=== PATIENT | male | born 1980 | race Two or more races ===

== ENCOUNTER 2017-02-21 12:03 | Outpatient (CLI) | payer MEDICARE ==
--- NOTE | 2017-02-22 18:53 | XRAY Report ---
LEFT FOREARM, TWO VIEWS: 02/21/2017 CLINICAL HISTORY: Pain. FINDINGS: Left forearm appears normal as does the left wrist and left elbow. IMPRESSION: NORMAL EXAMINATION. JOB #: [id number] EXT [id number] #:[id number]
== END 2017-02-21 12:04 | disposition home or self-care (01) ==
LOC: DI.N 12:03
PROVIDERS: ATTEND Physician Assistant
DX: M25.532 Pain in left wrist (principal)

== ENCOUNTER 2017-03-02 14:36 | Emergency (ER) | payer MEDICARE ==
[2017-03-02 15:08] LABS: BILIRUBIN,URINE NEGATIVE (NEGATIVE); PH,URINE 6.5 PH (5.0-7.5)
[2017-03-02 15:09] LABS: UA w/ MICROSCOPIC CHARGE YES
[2017-03-02 15:27] LABS: WBC,URINE 0-3 /HPF (0-3)
[2017-03-02 15:28] LABS: UR CULTURE IF IND NOT INDICATED
[2017-03-02] MEDS ORDERED: KETOROLAC 60 MG/2 ML VIAL IVP STA (16:19)
[2017-03-02] MEDS ORDERED: ONDANSETRON 4 MG/2 ML VIAL IVP STA (16:19)
[2017-03-02] MEDS ORDERED: ONDANSETRON 4 MG/2 ML VIAL ONE (16:24)
[2017-03-02] MEDS ORDERED: KETOROLAC 30 MG/ML VIAL ONE (16:24)
[2017-03-02 16:31] LABS: BASOPHILS % (AUTO) 0.4 %; EOSINOPHILS # (AUTO) 0.2 10^3/uL (0.0-0.7); HCT - HEMATOCRIT 43.9 % (42.0-52.0); HGB - HEMOGLOBIN 14.7 g/dL (14.0-18.0); LYMPHOCYTES # (AUTO) 1.9 10^3/uL (1.5-3.5); LYMPHOCYTES % (AUTO) 27.2 %; MEAN CORPUSCULAR HEMOGLOBIN 28.3 pg (27.0-31.0); MEAN CORPUSCULAR HGB CONC 33.5 g/dL (32.0-36.0); MEAN CORPUSCULAR VOLUME 84.5 fL (80.0-94.0); MEAN PLATELET VOLUME 6.8 fL (7.4-11.4); MONOCYTES # (AUTO) 0.6 10^3/uL (0.0-1.0); MONOCYTES % (AUTO) 9.1 %; NEUTROPHILS # (AUTO) 4.2 10^3/uL (1.5-6.6); NEUTROPHILS % (AUTO) 60.3 %; NUCLEATED RED BLOOD CELLS AUTO 0.1 /100WBC; RED CELL DISTRIBUTION WIDTH 13.5 % (12.0-15.0)
[2017-03-02 16:45] LABS: ALBUMIN/GLOBULIN RATIO 1.4 (1.0-2.2); BILIRUBIN,TOTAL 0.7 mg/dL (0.2-1.0); CALCIUM 9.2 mg/dL (8.5-10.3); POTASSIUM 3.6 mmol/L (3.5-5.0); TOTAL PROTEIN 7.8 g/dL (6.7-8.2)
--- NOTE | 2017-03-02 16:49 | ED Physician Documentation ---
PD HPI ABD PAIN - Stated complaint Stated Complaint: ABD PAIN - Chief complaint Chief Complaint: Abd Pain - History obtained from History obtained from: Patient - History of Present Illness Timing - onset: Today Timing - duration: Hours (8) Timing - details: Abrupt onset Pain level max: 9 Pain level now: 9 Quality: Aching, Pain Location: LLQ Radiation: Other (L testicle) Improved by: Other (shower) Worsened by: Other (palpation) Associated symptoms: No: Fever, Nausea, Vomiting, Hematemesis, Diarrhea, Constipation, Melena, Hematochezia Similar symptoms before: Diagnosis (ureteral stones) Recently seen: Not recently seen Review of Systems Constitutional: denies: Fever, Chills Nose: denies: Rhinorrhea / runny nose, Congestion Throat: denies: Sore throat Cardiac: denies: Chest pain / pressure Respiratory: denies: Cough : denies: Hematuria Skin: denies: Rash Neurologic: denies: Headache PD PAST MEDICAL HISTORY - Past Medical History Past Medical History: Yes : Kidney stones Psych: Bipolar disorder - Past Surgical History Past Surgical History: No - Present Medications Home Medications: Ambulatory Orders Medication Instructions Recorded Confirmed Hydrocodone/Acetaminophen 1 - 2 each PO Q6H PRN #14 tablet 03/02/17 [Hydrocodon-Acetaminophen 5-325] Ibuprofen [Motrin] 800 mg PO Q8H PRN #30 tablet 03/02/17 Ondansetron Odt [Zofran] 4 mg TL Q6H PRN #10 tablet 03/02/17 - Allergies Allergies/Adverse Reactions: Allergies Allergy/AdvReac Type Severity Reaction Status Date / Time No Known Drug Allergies Allergy Verified 03/02/17 14:43 - Social History Does the pt smoke?: Yes Smoking Status: Current every day smoker PD ED PE NORMAL - Vitals Vital signs reviewed: Yes - General General: Alert and oriented X 3, No acute distress, Well developed/nourished - HEENT HEENT: PERRL, Moist mucous membranes - Neck Neck: Supple, no meningeal sign - Cardiac Cardiac: RRR, Strong equal pulses - Respiratory Respiratory: No respiratory distress, Clear bilaterally - Abdomen Abdomen: Soft, Non tender, Non distended - Male Male : Other (Normal genital exam. No scrotal swelling, edema. No testicular tenderness. No epididymal tenderness.) - Back Back: No CVA TTP, No spinal TTP - Derm Derm: Warm and dry - Neuro Neuro: Alert and oriented X 3 - Psych Psych: Normal mood, Normal affect Results - Vitals Vitals: Vital Signs - 24 hr 03/02/17 03/02/17 14:41 17:28 Temperature 36.3 C L 36.6 C Heart Rate 81 75 Respiratory 18 18 Rate Blood Pressure 141/88 H 133/72 H O2 Saturation 100 98 Oxygen O2 Source Room air - Labs Labs: Laboratory Tests 03/02/17 03/02/17 03/02/17 14:51 16:05 16:05 WBC 7.0 RBC 5.20 Hgb 14.7 Hct 43.9 MCV 84.5 MCH 28.3 MCHC 33.5 RDW 13.5 Plt Count 336 MPV 6.8 L Neut # 4.2 Lymph # 1.9 [place] # 0.6 Eos # 0.2 Baso # 0.0 Absolute Nucleated RBC 0.01 Nucleated RBCs 0.1 Sodium 139 Potassium 3.6 Chloride 107 Carbon Dioxide 24 Anion Gap 8.0 BUN 23 H Creatinine 1.0 Estimated GFR (MDRD) 84 L Glucose 94 Calcium 9.2 Total Bilirubin 0.7 AST 20 ALT 28 Alkaline Phosphatase 55 Total Protein 7.8 Albumin 4.5 Globulin 3.3 Albumin/Globulin Ratio 1.4 Lipase 22 Urine Color YELLOW Urine Clarity CLEAR Urine pH 6.5 Ur Specific [place] 1.025 Urine Protein NEGATIVE Urine Glucose (UA) NEGATIVE Urine Ketones NEGATIVE Urine Occult Blood LARGE H Urine Nitrite NEGATIVE Urine Bilirubin NEGATIVE Urine Urobilinogen 0.2 (NORMAL) Ur Leukocyte Esterase NEGATIVE Urine RBC 11-25 H Urine WBC 0-3 Ur Squamous Epith Cells NONE SEEN Urine Bacteria None Seen Ur Microscopic Review INDICATED Urine Culture Comments NOT INDICATED PD MEDICAL DECISION MAKING - ED course Complexity details: considered differential, d/w patient ED course: Patient is a 36-year-old male who presents to the emergency department with what sounds like a ureteral stone by history. Left flank pain radiating to the left testicle. Hematuria present. No STD risk factors. Normal genital exam. As he has had kidney stones in the past, will hold CT at this time, treat symptomatically and see how he progresses. No evidence of UTI. Patient counseled regarding signs and symptoms for which I believe and urgent re- evaluation would be necessary. Patient with good understanding of and agreement to plan and is comfortable going home at this time This document was made in part using voice recognition software. While efforts are made to proofread this document, sound alike and grammatical errors may occur. Departure - Departure Disposition: 01 Home, Self Care Clinical Impression: Ureteral stone Condition: Good Instructions: ED Stone Renal W Colic Follow-Up: your,doctor in 1 week [Other] Prescriptions: Hydrocodone/Acetaminophen [Hydrocodon-Acetaminophen 5-325] 1 - 2 each PO Q6H PRN #14 tablet PRN Reason: pain Ibuprofen [Motrin] 800 mg PO Q8H PRN #30 tablet PRN Reason: PAIN &/OR FEVER Ondansetron Odt [Zofran] 4 mg TL Q6H PRN #10 tablet PRN Reason: Nausea / Vomiting Comments: Return if you worsen. This should improve over the next few days. Drink plenty of fluids. Do not drink alcohol or drive while on narcotic pain medicine. Note that many narcotic pain relievers also contain tylenol/acetaminophen. Please ensure that your total dose of acetaminophen from all sources does not exceed 3 grams (3000mg) per day. You may constipated on this medication, take a stool softener such as "Colace" twice a day while you are on it. Also recommend a uufl-teo-wbyoczt laxative such as senna or MiraLAX any day that you do not have a bowel movement. If you received narcotic pain medication in the emergency department, do not drive or operate machinery for the next 24 hours. Your blood pressure was elevated today on check in to the emergency department. This does not mean that you have hypertension, it is a common phenomenon to check into the emergency department and have elevated blood pressure. I recommend that you see your primary care physician within the week to have it rechecked when you're feeling better. Discharge Date/Time: 03/02/17 17:28
[2017-03-02] MEDS ORDERED: oxyCOD/ACETAMIN 5 MG/325 MG TABLET PO STA (16:58)
[2017-03-02] MEDS ORDERED: oxyCOD/ACETAMIN 5 MG/325 MG TABLET PO ONE (17:07)
[2017-03-02 17:29] VITALS: BP 133/72
== END 2017-03-02 17:28 | disposition home or self-care (01) ==
LOC: ED 14:36
DX: N20.1 Calculus of ureter (principal); Z87.442 Personal history of urinary calculi; R03.0 Elevated blood-pressure reading, without diagnosis of hypertension; F17.200 Nicotine dependence, unspecified, uncomplicated
CPT/HCPCS: 36415; 80053; 81001; 83690; 85025; 96374; 96375; 99283; 99284; A9270; 81003; 87086

== ENCOUNTER 2017-03-14 00:29 | Emergency (ER) | payer MEDICARE ==
[2017-03-14] MEDS: KETOROLAC 60 MG/2 ML VIAL IM STA (00:45)
[2017-03-14] MEDS ORDERED: KETOROLAC 60 MG/2 ML VIAL ONE (00:46)
[2017-03-14 00:50] LABS: BILIRUBIN,URINE NEGATIVE (NEGATIVE); PH,URINE 5.5 PH (5.0-7.5)
[2017-03-14 00:51] LABS: UA CHARGE (STRIP ONLY) YES; UR CULTURE IF IND NOT INDICATED
--- NOTE | 2017-03-14 01:34 | CT Preliminary Report ---
Exam: CT Abdomen/Pelvis W/O IMPRESSION: 1. There is a 6 x 4 mm left vesicoureteral junction stone resulting in mild to moderate hydronephrosi s. 2. Small hiatal hernia. [facility] SITE ID: [id number]
--- NOTE | 2017-03-14 01:36 | CT Report ---
EXAM: CT ABDOMEN AND PELVIS (CT KUB) EXAM DATE: 03/14/2017 01:18 AM. CLINICAL HISTORY: Left lower abd pain, . COMPARISONS: None. TECHNIQUE: Routine axial helical CT imaging was performed through the abdomen and pelvis without IV c ontrast. Reconstructions: Coronal and sagittal. In accordance with CT protocol optimization, one or more of the following dose reduction techniques w ere utilized for this exam: automated exposure control, adjustment of mA and/or KV based on patient s ize, or use of iterative reconstructive technique. FINDINGS: Lung Bases: Small hiatal hernia. Right Kidney/Ureter: No stones, hydronephrosis, or hydroureter. No perinephric fat stranding. Left Kidney/Ureter: Mild to moderate hydronephrosis and perinephric stranding. There is mild dilatati on of the ureter. Findings secondary to a 6 x 4 mm stone at the vesicoureteral junction. Other Solid Organs: Noncontrast images of the solid organs are grossly unremarkable. Gallbladder/Bile Ducts: The gallbladder is contracted. There is no bile duct dilatation. Peritoneal Cavity: No free fluid, free air or abdias adenopathy. Bowel is grossly unremarkable. Pelvic Organs: No bladder stones or wall thickening. Noncontrast images of the visualized pelvic orga ns are unremarkable. Vasculature: Unremarkable. Other: None. IMPRESSION: 1. There is a 6 x 4 mm left vesicoureteral junction stone resulting in mild to moderate hydronephrosi s. 2. Small hiatal hernia. [facility] Referring Provider Line: [phone] SITE ID: [id number]
--- NOTE | 2017-03-14 01:57 | ED Physician Documentation ---
PD HPI ABD PAIN - Stated complaint Stated Complaint: LT SIDE,LT GROIN PAIN - Chief complaint Chief Complaint: Abd Pain - History obtained from History obtained from: Patient, Family - History of Present Illness Timing - onset: Today Timing - details: Gradual onset, Still present, Waxing and waning Quality: Stabbing, Throbbing Location: LLQ Radiation: Left flank Associated symptoms: Nausea. No: Fever, Vomiting, Hematemesis, Diarrhea, Constipation Similar symptoms before: Work up / diagnostics, Treatment Recently seen: Emergency Dept - Additional information Additional information: Patient is a 36 year old male who was recently diagnosed with kidney stones who is presenting to the emergency department for left lower quadrant and left flank pain. Patient states that he had been ok for the last couple of days but then his pain came back. Review of Systems Constitutional: denies: Fever, Chills Eyes: denies: Loss of vision, Decreased vision Ears: denies: Ear pain, Drainage/discharge Nose: denies: Rhinorrhea / runny nose, Congestion Throat: denies: Oral lesions / sores, Sore throat Cardiac: denies: Chest pain / pressure GI: reports: Abdominal Pain, Nausea. denies: Vomiting, Constipation, Diarrhea : reports: Hesitancy. denies: Dysuria, Frequency Skin: denies: Rash, Lesions Musculoskeletal: reports: Back pain Neurologic: denies: Generalized weakness, Focal weakness, Numbness Immunocompromised: denies: Immunocompromised PD PAST MEDICAL HISTORY - Past Medical History Past Medical History: Yes : Kidney stones Psych: Bipolar disorder - Past Surgical History Past Surgical History: No - Present Medications Home Medications: Ambulatory Orders Medication Instructions Recorded Confirmed Hydrocodone/Acetaminophen 1 - 2 each PO Q6H PRN #14 tablet 03/02/17 [Hydrocodon-Acetaminophen 5-325] Ibuprofen [Motrin] 800 mg PO Q8H PRN #30 tablet 03/02/17 Ondansetron Odt [Zofran] 4 mg TL Q6H PRN #10 tablet 03/02/17 Ondansetron Odt [Zofran] 4 mg TL Q6H PRN #14 tablet 03/14/17 Oxycodone HCl/Acetaminophen 1 - 2 each PO Q6H PRN #10 tablet 03/14/17 [Percocet 5-325 mg Tablet] Tamsulosin HCl [Flomax] 0.4 mg PO DAILY #10 cap.er.24h 03/14/17 - Allergies Allergies/Adverse Reactions: Allergies Allergy/AdvReac Type Severity Reaction Status Date / Time No Known Drug Allergies Allergy Verified 03/14/17 00:40 - Social History Does the pt smoke?: Yes Smoking Status: Current every day smoker - POLST Patient has POLST: No PD ED PE NORMAL - Vitals Vital signs reviewed: Yes - General General: Alert and oriented X 3, Well developed/nourished - HEENT HEENT: Atraumatic, PERRL - Neck Neck: Supple, no meningeal sign - Cardiac Cardiac: RRR, No murmur - Respiratory Respiratory: No respiratory distress - Derm Derm: Normal color, Warm and dry, No rash - Extremities Extremities: No deformity, No tenderness to palpate - Neuro Neuro: Alert and oriented X 3, No motor deficit, No sensory deficit - Psych Psych: Normal mood PD ED PE EXPANDED - General General: Alert, In Pain - HEENT HEENT: Dry mucous membranes - Abdomen Abdomen: Tender to palpation, LLQ. No: Rebound, Guarding Results - Vitals Vitals: Vital Signs - 24 hr 03/14/17 03/14/17 00:35 02:05 Temperature 36.6 C Heart Rate 76 80 Respiratory 18 17 Rate Blood Pressure 161/96 H 146/96 H O2 Saturation 100 99 Oxygen O2 Source Room air - Labs Labs: Laboratory Tests 03/14/17 00:46 Urine Color YELLOW Urine Clarity CLEAR Urine pH 5.5 Ur Specific [place] >=1.030 H Urine Protein TRACE Urine Glucose (UA) NEGATIVE Urine Ketones NEGATIVE Urine Occult Blood NEGATIVE Urine Nitrite NEGATIVE Urine Bilirubin NEGATIVE Urine Urobilinogen 0.2 (NORMAL) Ur Leukocyte Esterase NEGATIVE Ur Microscopic Review NOT INDICATED Urine Culture Comments NOT INDICATED - Rads (name of study) ct abdomen/pelvis Radiology: Final report received (4mm by 6mm stone, mild hydro) PD MEDICAL DECISION MAKING - ED course Complexity details: reviewed old records, reviewed results, re-evaluated patient , considered differential, d/w patient, d/w family ED course: Patient was seen and examined at bedside. patient was treated with toradol for pain and urine was collected. Patient was sent for imaging. when patient returned he stated that he felt much better and was resting comfortably. patient did have a stone, but no signs of infection. Patient was instructed to get close urological follow up. patient felt comfortable with the plan and was stable for dishcarge with outpatient follow up. Departure - Departure Disposition: 01 Home, Self Care Clinical Impression: Ureteral stone Condition: Good Instructions: ED Stone Renal W Colic Follow-Up: [facility] [Provider Group] [facility] [Provider Group] Prescriptions: Tamsulosin HCl [Flomax] 0.4 mg PO DAILY #10 cap.er.24h Oxycodone HCl/Acetaminophen [Percocet 5-325 mg Tablet] 1 - 2 each PO Q6H PRN # 10 tablet PRN Reason: pain Ondansetron Odt [Zofran] 4 mg TL Q6H PRN #14 tablet PRN Reason: Nausea / Vomiting Comments: Your symptoms today are being caused by a kidney stone. Your stone is 6mm by 4mm so is borderline if it will pass. You will need to stay well hydrated and follow up with the urologist groups that are listed for you. You can take the zofran for nausea and tylenol or ibuprofen for pain. You can take percocet for breakthrough pain. You should return to the emergency department for fevers, chills, uncontrollable vomiting, new worsening or uncontrollable symptoms. Discharge Date/Time: 03/14/17 02:10
[2017-03-14 02:16] VITALS: BP 146/96
== END 2017-03-14 02:10 | disposition home or self-care (01) ==
LOC: ED 00:29
DX: N13.2 Hydronephrosis with renal and ureteral calculous obstruction (principal); Z87.442 Personal history of urinary calculi; K44.9 Diaphragmatic hernia without obstruction or gangrene; F17.200 Nicotine dependence, unspecified, uncomplicated
CPT/HCPCS: 74176; 81001; 81003; 87086; 96372; 99283; 99284

== ENCOUNTER 2018-02-28 20:10 | Emergency (ER) | payer MEDICAID, MEDICARE ==
[2018-02-28 20:21] VITALS: BP 130/77
[2018-02-28] MEDS ORDERED: HYDROcod/ACET 5/325 Prepack 4 PO STA (20:45)
[2018-02-28] MEDS ORDERED: HYDROcod/ACETAM 5/325 MG TABLET PO STA (20:45)
--- NOTE | 2018-02-28 20:48 | ED Physician Documentation ---
PD HPI UPPER EXT INJURY - Stated complaint Stated Complaint: L HAND INJ - Chief complaint Chief Complaint: Trauma Ext - History obtained from History obtained from: Patient - History of Present Illness Location: Left (This is a right-handed gentleman who is working on his own car and while working on the brake booster accidentally hit the carpal bones of his left wrist with the wrench and he has significant pain in the distal wrist and limited range of motion there. No other injuries.) Review of Systems Constitutional: reports: Reviewed and negative Cardiac: reports: Reviewed and negative Respiratory: reports: Reviewed and negative PD PAST MEDICAL HISTORY - Past Medical History : Kidney stones Psych: Bipolar disorder - Past Surgical History Past Surgical History: No - Present Medications Home Medications: Ambulatory Orders Medication Instructions Recorded Confirmed Hydrocodone/Acetaminophen 1 - 2 each PO Q6H PRN #14 tablet 03/02/17 [Hydrocodon-Acetaminophen 5-325] Ibuprofen [Motrin] 800 mg PO Q8H PRN #30 tablet 03/02/17 Ondansetron Odt [Zofran] 4 mg TL Q6H PRN #10 tablet 03/02/17 Ondansetron Odt [Zofran] 4 mg TL Q6H PRN #14 tablet 03/14/17 Oxycodone HCl/Acetaminophen 1 - 2 each PO Q6H PRN #10 tablet 03/14/17 [Percocet 5-325 mg Tablet] Tamsulosin HCl [Flomax] 0.4 mg PO DAILY #10 cap.er.24h 03/14/17 - Allergies Allergies/Adverse Reactions: Allergies Allergy/AdvReac Type Severity Reaction Status Date / Time No Known Drug Allergies Allergy Verified 03/14/17 00:40 - Social History Does the pt smoke?: Yes Smoking Status: Current every day smoker - POLST Patient has POLST: No PD ED PE NORMAL - Vitals Vital signs reviewed: Yes - General General: Alert and oriented X 3, No acute distress - Extremities Extremities: Other (Tender over the proximal row of the carpal bones, mid side, probably the lunate or the triquetrum. There is no tenderness in the area of the scaphoid. He has limited flexion and extension of the left wrist but he does have some. The distal radial ulnar joint is nontender.) - Neuro Neuro: Alert and oriented X 3, Normal speech Results - Vitals Vitals: Vital Signs - 24 hr 02/28/18 20:10 Temperature 36.5 C Heart Rate 94 Respiratory 16 Rate Blood Pressure 130/77 O2 Saturation 97 Oxygen O2 Source Room air - Rads (name of study) 3v L wrist Radiology: EMP read contemporaneously (normal) PD MEDICAL DECISION MAKING - Sepsis Event Vital Signs: Vital Signs - 24 hr 02/28/18 20:10 Temperature 36.5 C Heart Rate 94 Respiratory 16 Rate Blood Pressure 130/77 O2 Saturation 97 Oxygen O2 Source Room air Departure - Departure Disposition: 01 Home, Self Care Clinical Impression: Contusion of left wrist Qualifiers: Encounter type: initial encounter Qualified Code(s): S60.212A - Contusion of left wrist, initial encounter Condition: Good Record reviewed to determine appropriate education?: Yes Instructions: ED Contusion Hand Comments: If pain is still there in a week, follow-up with your doctor for recheck, Tylenol or ibuprofen as needed for pain. Return if worse.
--- NOTE | 2018-02-28 21:47 | XRAY Report ---
Procedure Date: 02/28/2018 Accession Number: [id number] / [id number] Procedure: XR - Wrist 3 View LT CPT Code: FULL RESULT: EXAM: LEFT WRIST RADIOGRAPHY EXAM DATE: 02/28/2018 09:17 PM. CLINICAL HISTORY: Injury working in his car @ 1600. Left wrist pain, heavy object hit wrist. COMPARISON: Left forearm 02/21/2017. TECHNIQUE: 3 views. FINDINGS: Bones: Normal. No fractures or bone lesions. Joints: Normal. No subluxations. Soft Tissues: Normal. No soft tissue swelling. IMPRESSION: Normal wrist radiography. [facility]
== END 2018-02-28 22:00 | disposition home or self-care (01) ==
LOC: ED 20:10
DX: S60.212A Contusion of left wrist, initial encounter (principal); F17.200 Nicotine dependence, unspecified, uncomplicated; W22.8XXA Striking against or struck by other objects, initial encounter; Y93.89 Activity, other specified
CPT/HCPCS: 73110; 99282; 99283; A9270

== ENCOUNTER 2018-05-02 08:52 | Emergency (ER) | payer SELFPAY ==
[2018-05-02] MEDS ORDERED: CYCLOBENZAPRINE 10 MG TABLET PO STA (09:54)
[2018-05-02] MEDS ORDERED: KETOROLAC 60 MG/2 ML VIAL IM STA (09:54)
--- NOTE | 2018-05-02 09:59 | ED Physician Documentation ---
History of Present Illness - Stated complaint Stated Complaint: ARM PX - Chief complaint Chief Complaint: Ext Problem - Additonal information Additional information: hx from pt 37 male healthy no CAD to ED with severe L shoulder pain X 4 days rad to ant L chest worse with moving shoulder and breathing no neck or shoulder injury hard to move L arm hand 2.2 pain no fever redness or swelling Review of Systems Constitutional: denies: Fever Cardiac: reports: Chest pain / pressure Respiratory: denies: Dyspnea GI: denies: Abdominal Pain Musculoskeletal: reports: Joint pain Neurologic: reports: Focal weakness (due to pain) Endocrine: denies: Easy bruising / bleeding Immunocompromised: denies: Immunocompromised PD PAST MEDICAL HISTORY - Past Medical History : Kidney stones Psych: Bipolar disorder - Past Surgical History Past Surgical History: No - Present Medications Home Medications: Ambulatory Orders Medication Instructions Recorded Confirmed Hydrocodone/Acetaminophen 1 - 2 each PO Q6H PRN #14 tablet 03/02/17 [Hydrocodon-Acetaminophen 5-325] Ibuprofen [Motrin] 800 mg PO Q8H PRN #30 tablet 03/02/17 Ondansetron Odt [Zofran] 4 mg TL Q6H PRN #10 tablet 03/02/17 Ondansetron Odt [Zofran] 4 mg TL Q6H PRN #14 tablet 03/14/17 Oxycodone HCl/Acetaminophen 1 - 2 each PO Q6H PRN #10 tablet 03/14/17 [Percocet 5-325 mg Tablet] Tamsulosin HCl [Flomax] 0.4 mg PO DAILY #10 cap.er.24h 03/14/17 Cyclobenzaprine [Flexeril] 10 mg PO TID PRN #20 tablet 05/02/18 Ibuprofen [Motrin] 400 mg PO Q6H PRN #30 tablet 05/02/18 Lidocaine Patch 5% [Lidoderm Patch] 1 each TOP DAILY PRN #10 patch 05/02/18 - Allergies Allergies/Adverse Reactions: Allergies Allergy/AdvReac Type Severity Reaction Status Date / Time No Known Drug Allergies Allergy Verified 03/14/17 00:40 - Social History Does the pt smoke?: Yes Smoking Status: Current every day smoker Does the pt drink ETOH?: No Does the pt have substance abuse?: No - Immunizations Immunizations are current?: Yes - POLST Patient has POLST: No PD ED PE NORMAL - Vitals Vital signs reviewed: Yes - General General: Alert and oriented X 3 - Cardiac Cardiac: RRR - Respiratory Respiratory: No respiratory distress, Clear bilaterally - Abdomen Abdomen: Soft, Non tender - Derm Derm: No rash - Extremities Extremities: Other (holding L shoulder to his bony, TTP entire shoulder and lateral upper aerm, no warmth redness or swelling, pain with any shoulder ROM so unable to assess strength, 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 and wrist ext intact, strong radial pulse, brisk cap refill, sensation intact) Results - Vitals Vitals: Vital Signs - 24 hr 05/02/18 09:08 Temperature 36.5 C Heart Rate 71 Respiratory 18 Rate Blood Pressure 141/106 H O2 Saturation 100 Oxygen O2 Source Room air - EKG (time done) 1014 Rate: Rate (enter#) (59) Rhythm: NSR [place]: Normal Intervals: Normal MS Ischemia: Normal ST segments - Labs Labs: Laboratory Tests 05/02/18 10:10 Troponin I < 0.04 - Rads (name of study) shoulder Radiology: See rad report (no acute) chest Radiology: See rad report (no acute, linear atelectasis or scarring) PD MEDICAL DECISION MAKING - Sepsis Event Vital Signs: Vital Signs - 24 hr 05/02/18 09:08 Temperature 36.5 C Heart Rate 71 Respiratory 18 Rate Blood Pressure 141/106 H O2 Saturation 100 Oxygen O2 Source Room air Departure - Departure Disposition: 01 Home, Self Care Clinical Impression: Left shoulder pain Qualifiers: Chronicity: acute Qualified Code(s): M25.512 - Pain in left shoulder Condition: Good Instructions: ED Shoulder Pain [facility] Follow-Up: Noah Johnston MD [Primary Care Provider] - Prescriptions: Cyclobenzaprine [Flexeril] 10 mg PO TID PRN #20 tablet PRN Reason: Spasms Ibuprofen [Motrin] 400 mg PO Q6H PRN #30 tablet PRN Reason: Pain Lidocaine Patch 5% [Lidoderm Patch] 1 each TOP DAILY PRN #10 patch PRN Reason: Pain Comments: The xrays were fine - no bone injury on the shoulder xray and no lung/heart/aorta problems on the chest xray And the EKG and blood test for your heart were fine So I think this p[ain is due to the muscles in your shoulder I think it is safe for you to go home I have prescribed medication to help ease the pain And we gave you a sling to wear as needed for discomfort - but johan need to be sure to take off the brace and move the shoulder around a bit every day to prevent the shoulder from "freezing" Physical therapy will help too - please ch[place] your insurance company to ask how to access. And please follow up with your PMD to get your blood pressure rechecked Forms: Activity restrictions
--- NOTE | 2018-05-02 10:55 | XRAY Report ---
Reason: L shoulder chest pain Procedure Date: 05/02/2018 Accession Number: [id number] / [id number] Procedure: XR - Shoulder 2 View LT CPT Code: FULL RESULT: EXAM: LEFT SHOULDER RADIOGRAPHY EXAM DATE: 05/02/2018 10:34 AM. CLINICAL HISTORY: L shoulder chest pain. COMPARISON: None. TECHNIQUE: 2 views. FINDINGS: Bones: Normal. No fracture or bone lesion. Joints: The glenohumeral and acromioclavicular joints are normal. Soft tissues: The visualized hemithorax is unremarkable. No soft tissue swelling. IMPRESSION: Normal shoulder radiography. [facility]
--- NOTE | 2018-05-02 10:55 | XRAY Report ---
Reason: L shoulder chest pain Procedure Date: 05/02/2018 Accession Number: [id number] / [id number] Procedure: XR - Chest 2 View X-Ray CPT Code: 27397 FULL RESULT: EXAM: CHEST RADIOGRAPHY EXAM DATE: 05/02/2018 10:34 AM. CLINICAL HISTORY: L shoulder chest pain. COMPARISON: None. TECHNIQUE: 2 views. FINDINGS: Lungs/Pleura: Linear atelectasis or scarring left lung base No pleural effusion. No pneumothorax. Normal volumes. Mediastinum: Heart and mediastinal contours are unremarkable. Other: None. IMPRESSION: Linear atelectasis or scarring left lung base [facility]
[2018-05-02 14:24] VITALS: BP 156/98
== END 2018-05-02 14:20 | disposition home or self-care (01) ==
LOC: ED 08:52
DX: M25.512 Pain in left shoulder (principal); F17.200 Nicotine dependence, unspecified, uncomplicated
CPT/HCPCS: 36415; 71046; 73030; 84484; 93005; 96372; 99283; A9270

== ENCOUNTER 2020-03-19 18:56 | Outpatient (CLI) | payer OTHER | END 2020-03-19 18:57 | disposition home or self-care (01) | LOC: COV 18:56 | PROVIDERS: ATTEND Family Medicine | DX: R50.9 Fever, unspecified (principal); R05 Cough; R06.00 Dyspnea, unspecified; M79.10 Myalgia, unspecified site; R53.83 Other fatigue; R19.7 Diarrhea, unspecified; R11.2 Nausea with vomiting, unspecified; Z20.828 Contact with and (suspected) exposure to other viral communicable diseases ==

== ENCOUNTER 2020-07-23 14:41 | Outpatient (CLI) | payer OTHER | END 2020-07-23 14:42 | disposition home or self-care (01) | LOC: COV 14:41 | PROVIDERS: ATTEND Family Medicine | DX: Z20.828 Contact with and (suspected) exposure to other viral communicable diseases (principal) ==